=== PATIENT | female | born 1945 | race Caucasian/White ===

== ENCOUNTER → 2017-08-04 | Outpatient (CLI) | payer MEDICARE, BC ==
--- NOTE | 2017-08-04 16:04 | RAD ---
DATE: August 04, 2017 EXAM: MAMMO PRINCE SCREENING BILATERAL HISTORY: Screening study. COMPARISON: 2014 and 2016 This study was interpreted with the benefit of Computerized Aided Detection (CAD). 2-D digital mammographic views of both breasts were performed in the CC and MLO projections. 3-D digital tomosynthesis of both breasts were performed in the CC and MLO projections and reviewed on a computer workstation. FINDINGS: The breast parenchyma is scattered and mildly dense. There are no dominant suspicious masses, suspicious microcalcifications or evidence of architectural distortion. Benign-appearing secretory calcifications are again evident bilaterally. IMPRESSION: No mammographic indicators for malignancy. BI-RADS CATEGORY: 2 BENIGN FINDING RECOMMENDED FOLLOW-UP: 12M 12 MONTH FOLLOW-UP PQRS compliance statement: Patient information was entered into a reminder system with a target due date August 05, 2018 for the next mammogram. Mammography is a sensitive method for finding small breast cancers, but it does not detect them all and is not a substitute for careful clinical examination. A negative mammogram does not negate a clinically suspicious finding and should not result in delay in biopsying a clinically suspicious abnormality. "Our facility is accredited by the [employer] Mammography [employer]." The patient's breast density may affect the ability of mammography to detect breast cancer. There are 4 categories of breast density, A, B, C and D. Breast density A means that most of the breast tissue is replaced with adipose tissue and therefore is not dense. Breast density B means that the breast tissue is mildly dense and scattered. Breast density C means that the breast tissue is heterogeneously dense. Breast density D means that the breast tissue is very dense. Breast densities especially C and D may decrease the sensitivity of mammography to detect breast cancer. Therefore, the patient may benefit from 3-D breast mammography (3D breast tomography) as a part of their screening mammogram. Insurance may or may not pay for this additional imaging. The patient's breast density based on today's mammogram is category B.
== END | disposition home or self-care (01) ==
LOC: MAMMO 10:17
PROVIDERS: ATTEND Physician Assistant Medical
DX: Z12.31 Encounter for screening mammogram for malignant neoplasm of breast (principal); Z85.3 Personal history of malignant neoplasm of breast
CPT/HCPCS: 77063; 77067

== ENCOUNTER → 2018-07-29 | Outpatient (CLI) | payer MEDICARE, BC ==
--- NOTE | 2018-07-29 11:51 | CARD ---
MR#: [id number] Date of Study: 07/29/2018 Ordering Physician: JOHANNA AGUIRRE, Referring Physician: JOHANNA AGUIRRE, Tech: Jesica Romero APPROVED REPORT EXAM: Two-dimensional and M-mode echocardiogram with Doppler and color Doppler. Other Information Quality : GoodHR: 62bpm INDICATION Murmur RISK FACTORS Hypertension 2D DIMENSIONS Left Atrium(2D)3.2 (1.6-4.0cm)IVSd1.3 (0.7-1.1cm) Aortic Root(2D)3.7 (2.0-3.7cm)LVDd3.4 (3.9-5.9cm) LVOT Diameter2.1 (1.8-2.4cm)PWd1.2 (0.7-1.1cm) LVDs2.1 (2.5-4.0cm)FS (%) 38.4 % SV33.1 mlLVEF(%)69.8 (>50%) Aortic Valve AoV Peak Jorge Alberto.114.0cm/sAoV VTI25.6cm AO Peak GR.5.2mmHgLVOT Peak Jorge Alberto.114.2cm/s LVOT VTI 26.96cmAO Mean GR.3mmHg DAYANA (VMAX)3.82fv3XHQ (VTI)3.51cm2 AI P 1/2 Dscc511we Mitral Valve MV E Xobhqetc25.8cm/sMV DECEL LXIS139zr MV A Eucginzv88.5cm/sE/A Ratio0.7 Pulmonary Valve PV Peak Hsmwxbge43.7cm/sPV Peak Grad.3mmHg Tricuspid Valve RAP [id number] Pulmonary Vein S1 Jnrfstkp82.7cm/sD2 Nagnayko85.9cm/s LEFT VENTRICLE The left ventricle is normal size. There is mild to moderate concentric left ventricular hypertrophy. The left ventricular systolic function is normal and the ejection fraction is within normal range. T he Ejection Fraction is >55%. There is normal LV segmental wall motion. Transmitral Doppler flow frank anna is Grade I-abnormal relaxation pattern. RIGHT VENTRICLE The right ventricle is normal size. There is normal right ventricular wall thickness. The right ventr icular systolic function is normal. ATRIA The left atrium size is normal. The right atrium size is normal. The interatrial septum is intact wit h no evidence for an atrial septal defect or patent foramen ovale as noted on 2-D or Doppler imaging. AORTIC VALVE The aortic valve is calcified but opens well. Doppler and Color Flow revealed mild aortic regurgitati on. There is no significant aortic valvular stenosis. MITRAL VALVE The mitral valve is normal in structure and function. There is no evidence of mitral valve prolapse. There is no mitral valve stenosis. Doppler and Color-flow revealed trace mitral regurgitation. TRICUSPID VALVE The tricuspid valve is normal in structure and function. Doppler and Color Flow revealed trace tricus pid regurgitation. There is no tricuspid valve stenosis. PULMONIC VALVE The pulmonic valve is not well visualized. Doppler and Color Flow revealed no pulmonic valvular regur gitation. There is no pulmonic valvular stenosis. GREAT VESSELS The aortic root is normal in size. The ascending aorta is 3.7cm borderline dilated. The IVC is normal in size and collapses >50% with inspiration. PERICARDIAL EFFUSION There is no evidence of significant pericardial effusion. Critical Notification Critical Value: No <Conclusion> The left ventricular systolic function is normal and the ejection fraction is within normal range. Th e Ejection Fraction is >55%. There is normal LV segmental wall motion. Doppler and Color Flow revealed mild aortic regurgitation. The ascending aorta is 3.7cm borderline dilated. Signed by : Austin Lemus, Electronically Approved : 07/29/2018 11:49:21
== END | disposition home or self-care (01) ==
LOC: ECHO 08:47
PROVIDERS: ATTEND Physician Assistant Medical
DX: I35.1 Nonrheumatic aortic (valve) insufficiency (principal); I11.9 Hypertensive heart disease without heart failure; R00.8 Other abnormalities of heart beat
CPT/HCPCS: 93306

== ENCOUNTER → 2018-08-10 | Outpatient (CLI) | payer MEDICARE, BC ==
--- NOTE | 2018-08-10 14:19 | RAD ---
DATE: 08/10/2018 EXAM: MAMMO PRINCE SCREENING BILATERAL HISTORY: Routine screening COMPARISON: 08/04/2017, 05/13/2016, 05/09/2015 mammographic exams This study was interpreted with the benefit of Computerized Aided Detection (CAD). Breast Density: SCATTERED The breast parenchyma shows scattered fibroglandular densities. Breast parenchyma level B. FINDINGS: Benign calcifications are present. Small masses in the retroareolar regions have remained stable. No new masses or distortion. No suspicious calcifications in the interval. Small asymmetries have remained stable. IMPRESSION: No suspicious new findings. BI-RADS CATEGORY: 2 BENIGN FINDING(S) RECOMMENDED FOLLOW-UP: 12M 12 MONTH FOLLOW-UP PQRS compliance statement: Patient information was entered into a reminder system with a target due date in one year for the next mammogram. Mammography is a sensitive method for finding small breast cancers, but it does not detect them all and is not a substitute for careful clinical examination. A negative mammogram does not negate a clinically suspicious finding and should not result in delay in biopsying a clinically suspicious abnormality. "Our facility is accredited by the [employer] Mammography [employer]."
--- NOTE | 2018-08-10 15:51 | RAD ---
Bone densitometry 08/10/2018 9:00 AM Indication: osteopenia, ov failure Comparison Study: Bone densitometry May 09, 2013. Discussion: Bone Densitometry was performed with dual photon absorption of the lumbar spine and proximal right femur. Bone densitometry April 20, 2013.. Lumbar Spine: Bone average density is 1.016g/cm2 for L1-L4. T-Score is -1.4 (prior T score -0.7).. Right femoral neck: Bone average density is 0.806g/cm2. T-Score is -1.7 (the prior T score -1.6).. 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 Note: Definitions established by the World Health Organization: Normal: T-score is -1.0 or above. Osteopenia: T-score is between -1.0 and -2.5. Osteoporosis: T-score is -2.5 or below. Electronically signed by: Rowdy Rowland MD (08/10/2018 3:46 PM) [id number]
== END | disposition home or self-care (01) ==
LOC: MAMMO 08:39
PROVIDERS: ATTEND Physician Assistant Medical
DX: Z12.31 Encounter for screening mammogram for malignant neoplasm of breast (principal); M85.89 Other specified disorders of bone density and structure, multiple sites; E28.39 Other primary ovarian failure
CPT/HCPCS: 77063; 77067; 77080

== ENCOUNTER → 2019-02-19 | Outpatient (CLI) | payer MEDICARE, BC ==
[~2019-02-19] MED LIST: IOHEXOL 240 MG/ML 50ML VIAL. ONE; IOHEXOL 300 MG/ML 75 ML VIAL. IV ONE
--- NOTE | 2019-02-19 10:32 | RAD ---
CT scan abdomen and pelvis with contrast 02/19/2019 CLINICAL HISTORY: Abdominal pain with bloating. TECHNIQUE: After the oral and intravenous ministration contrast, contiguous, 5 mm axial sections were obtained through abdomen and pelvis. 75 cc of Omnipaque 300 were administered intravenously during this examination. One or more of the following individualized dose reduction techniques were utilized for this study: 1. Automated exposure control. 2. Adjustment of the mA and/or kV according to patient size. 3. Use of iterative reconstruction technique. FINDINGS: No previous imaging studies are available for comparison. Images through the lung bases demonstrate minimal dependent subsegmental atelectasis bilaterally. There is mild cardiomegaly. Exophytic low-attenuation lesions are seen extending posteriorly from the right lobe of the liver which measure 1 to 2.5 cm in size. These may represent hemangiomas. The spleen, pancreas and adrenal glands are within normal limits. A 1.8 cm rounded low-attenuation lesion is seen involving the superior/midpole of the right kidney. A 5 mm rounded low-attenuation lesion is seen involving the superior pole of the left kidney. These likely represent cysts. Moderate atherosclerotic calcification of the abdominal aorta and its branches is seen. The abdominal aorta tapers normally. The gallbladder is contracted. No free fluid or free air is seen within the abdomen. There is no evidence of bowel obstruction. Images through the pelvis demonstrate the urinary bladder distended with urine. Scattered diverticula are seen involving the sigmoid colon. No inflammatory changes are seen adjacent fat. A 4.4 cm oval-shaped structure seen in the left adnexa which likely represents an ovarian cyst. No free fluid is seen. Very mild S-shaped curvature of the thoracolumbar spine is noted. Degenerative changes are seen involving lower thoracic and throughout the lumbar spine along with both hips. IMPRESSION: 4.4 cm probable left ovarian cyst. Electronically signed by: Christiano Brown MD (02/19/2019 10:29 AM) [id number]
== END | disposition home or self-care (01) ==
LOC: CT 08:12
PROVIDERS: ATTEND Physician Assistant Medical
DX: K57.30 Diverticulosis of large intestine without perforation or abscess without bleeding (principal); J98.11 Atelectasis; I51.7 Cardiomegaly; K76.9 Liver disease, unspecified; N28.9 Disorder of kidney and ureter, unspecified; I70.0 Atherosclerosis of aorta; N32.89 Other specified disorders of bladder; M47.815 Spondylosis without myelopathy or radiculopathy, thoracolumbar region; M16.0 Bilateral primary osteoarthritis of hip
CPT/HCPCS: 74177; Q9967

== ENCOUNTER → 2019-03-16 | Outpatient (CLI) | payer MEDICARE, BC ==
--- NOTE | 2019-03-16 13:43 | RAD ---
THYROID ULTRASOUND History: Electrolyte abnormality Comparison: July 11, 2014 Findings: Multiple sonographic images of the region of thyroid gland are submitted. Residual right thyroid lobe is estimated about 1.1 x 0.7 x 1.2 cm. Residual left thyroid lobe is estimated about 0.9 x 0.7 x 1.1 cm. Isthmus measured about 0.2 cm in thickness. No discrete nodularity or definitive thyroid mass or parathyroid mass is identified by ultrasound. Impression: 1. There is very minimal residual tissue of the thyroid fossa bilaterally, no discrete mass demonstrated by ultrasound. Electronically signed by: Yg Parekh MD (03/16/2019 1:40 PM) [id number]
== END | disposition home or self-care (01) ==
LOC: US 07:37
PROVIDERS: ATTEND Physician Assistant Medical
DX: E87.8 Other disorders of electrolyte and fluid balance, not elsewhere classified (principal)
CPT/HCPCS: 76536

== ENCOUNTER → 2019-03-23 | Outpatient (CLI) | payer MEDICARE, BC ==
--- NOTE | 2019-03-23 15:10 | RAD ---
EXAM: CT Head without IV contrast CLINICAL HISTORY: DIZZINESS X 1 MONTH COMPARISON: None. TECHNIQUE: Routine CT of the head without contrast. Soft tissues and bone windows were reviewed. PQRS compliance statement - One or more of the following individualized dose reduction techniques were utilized for this study: 1. Automated exposure control 2. Adjustment of the mA and/or kV according to patient size 3. Use of iterative reconstruction technique FINDINGS: There is no evidence of hemorrhage, mass or extra-axial fluid collection. Buitrago-white differentiation is maintained with no evidence of edema. Scattered foci of subcortical and periventricular white matter hypoattenuation may be seen with chronic small vessel disease. There is no mass effect or shift of the intracranial structures. The ventricles, basilar cisterns and cortical sulci are normal in size and configuration for the patients stated age. 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 The calvarium demonstrates no evidence of fracture or focal lesion. There is normal aeration of the visualized paranasal sinuses and mastoid air cells. Radiopaque density overlying the right orbit, possibly postsurgical. Atherosclerotic calcifications of the intracranial internal carotid and vertebral arteries is seen. IMPRESSION: 1. No evidence for acute intracranial process. 2. Scattered foci of subcortical and periventricular white matter hypoattenuation may be seen with chronic small vessel disease. Electronically signed by: Nick Petersen MD (03/23/2019 3:07 PM) [facility]
== END | disposition home or self-care (01) ==
LOC: CT 10:30
PROVIDERS: ATTEND Physician Assistant Medical
DX: I67.2 Cerebral atherosclerosis (principal)
CPT/HCPCS: 70450

== ENCOUNTER → 2019-03-24 | Outpatient (CLI) | payer MEDICARE, BC ==
--- NOTE | 2019-03-24 13:14 | RAD ---
HEPATOBILIARY SCAN History: Bloating, nausea x3 months. COMPARISON: CT abdomen and pelvis with contrast February 19, 2019. Procedure: Serial static images are obtained of the liver and biliary system in the frontal projection following IV administration of 5.5 mCi of Technetium 99m Choletec time 60 minutes. Findings: There is prompt hepatic clearance of tracer from the blood pool. There is homogeneous distribution throughout the liver. Tracer in common bile duct is identified by 10 minutes. Tracer in small bowel is identified by 25 minutes. Tracer in gallbladder is seen beginning at 50 minutes. IMPRESSION: The cystic duct and common bile duct are patent. Negative for acute cholecystitis. Electronically signed by: Tigre Boswell MD (03/24/2019 1:11 PM) [id number]
== END | disposition home or self-care (01) ==
LOC: NM 07:35
PROVIDERS: ATTEND Physician Assistant Medical
DX: R10.11 Right upper quadrant pain (principal); R14.0 Abdominal distension (gaseous); R11.0 Nausea; M16.0 Bilateral primary osteoarthritis of hip
CPT/HCPCS: 78226; A9537; 96374

== ENCOUNTER → 2019-07-26 | Outpatient (CLI) | payer MEDICARE, BC ==
[2019-07-26 11:36] LABS: BASO % 0 % (0-3); EOS # 0.1 x10^3/uL (0.0-0.7); EOS % 2 % (0-3); HEMATOCRIT 43.8 % (36.0-47.0); HEMOGLOBIN 14.6 g/dL (12.0-15.5); LYMPH # 1.4 x10^3/uL (1.0-4.8); LYMPH % 16 % (24-48); MEAN CORPUSCULAR HEMOGLOBIN 33 pg (25-35); MEAN CORPUSCULAR HGB CONC 33 g/dL (31-37); MEAN CORPUSCULAR VOLUME 100 fL (79-100); MONO # 0.4 x10^3/uL (0.0-1.1); MONO % 4 % (0-9); NEUT % 78 % (31-73); PLATELET COUNT 328 x10^3/uL (140-400); RED CELL DISTRIBUTION WIDTH 12.4 % (11.5-14.5)
[2019-07-26 11:55] LABS: ALBUMIN 4.1 g/dL (3.4-5.0); ALBUMIN/GLOBULIN RATIO 1.2 (1.0-1.7); CALCIUM 9.3 mg/dL (8.5-10.1); CREATININE 0.7 mg/dL (0.6-1.0); GFR 81.6; POTASSIUM 3.6 mmol/L (3.5-5.1); TOTAL BILIRUBIN 1.3 mg/dL (0.2-1.0); TOTAL PROTEIN 7.6 g/dL (6.4-8.2)
[2019-07-26 14:15] LABS: FREE T4 1.05 ng/dL (0.76-1.46); THYROID STIM HORMONE (TSH) 4.672 uIU/mL (0.358-3.740)
[2019-07-26 23:06] LABS: HEMOGLOBIN A1C 5.6 % (4.8-5.6)
== END | disposition home or self-care (01) ==
LOC: LAB 10:05
PROVIDERS: ATTEND Physician Assistant Medical
DX: E87.8 Other disorders of electrolyte and fluid balance, not elsewhere classified (principal); R42 Dizziness and giddiness; I10 Essential (primary) hypertension; E03.9 Hypothyroidism, unspecified; Z79.899 Other long term (current) drug therapy
CPT/HCPCS: 36415; 80053; 80061; 82306; 82607; 83036; 84439; 84443; 84481; 85025

== ENCOUNTER → 2019-08-31 | Outpatient (CLI) | payer MEDICARE, BC ==
--- NOTE | 2019-08-31 10:58 | RAD ---
History: Routine screening. Technique: Bilateral digital mammographic routine views were obtained with 2-D and 3-D technique, including CAD - computer aided detection. Comparison: 08/04/2017, 08/10/2018. Findings: Breast Tissue Density B :The breast tissue is composed of mixed fatty and fibroglandular tissue. There are no suspicious masses, microcalcifications or areas of architectural distortion. Impression: Negative mammogram. BI-RADS Category 1: Negative. Normal interval followup. A mammogram does not have 100% sensitivity and therefore a negative imaging study should not delay further work up of a suspicious abnormality. The patient will receive a letter with the results in the mail. Patient information is entered into the reminder system with a target due date for the next screening mammogram. The patient will receive a reminder. "Our facility is accredited by the [employer] Mammography Program." BI-RADS 1 -- negative findings (within normal)
== END | disposition home or self-care (01) ==
LOC: MAMMO 08:48
PROVIDERS: ATTEND Physician Assistant Medical
DX: Z12.31 Encounter for screening mammogram for malignant neoplasm of breast (principal)
CPT/HCPCS: 77063; 77067

== ENCOUNTER → 2020-10-31 | Outpatient (CLI) | payer MEDICARE, BC | LOC: MAMMO 09:05 | PROVIDERS: ATTEND Physician Assistant Medical | DX: Z12.31 Encounter for screening mammogram for malignant neoplasm of breast (principal) | CPT/HCPCS: 77063; 77067 ==